=== PATIENT | female | born 1935 | race Caucasian/White ===

== ENCOUNTER → 2017-02-10 | Outpatient (CLI) | payer MEDICARE, OTHER | END | disposition home or self-care (01) | LOC: PCVCCLINIC 13:00 | PROVIDERS: ATTEND Internal Medicine Cardiovascular Disease | DX: E78.00 Pure hypercholesterolemia, unspecified (principal); I48.0 Paroxysmal atrial fibrillation; G45.9 Transient cerebral ischemic attack, unspecified; I34.0 Nonrheumatic mitral (valve) insufficiency; I07.1 Rheumatic tricuspid insufficiency | CPT/HCPCS: 80061; 93005; G0463 ==

== ENCOUNTER → 2017-09-29 | Outpatient (CLI) | payer MEDICARE, OTHER ==
--- NOTE | 2017-09-29 17:20 | PCVCIMAG ---
APPROVED REPORT Study performed: 09/29/2017 15:41:50 EXAM: Comprehensive 2D, Doppler, and color-flow Echocardiogram Patient Location: Echo lab Room #: 2Status: routine BSA: 1.79 HR: 55 bpmBP: 122/74 mmHg Rhythm: Bradycardia Other Information Study Quality: Fair Risk Factors: Cardiac Risk Factors: Hyperlipidemia Indications Pulmonary Hypertension Atrial Fibrillation 2D Dimensions LVEF(%): 53.12 (>50%) IVSd: 8.81 (7-11mm)LVOT Diam: 20.63 (18-24mm) LVDd: 45.21 mm PWd: 7.09 (7-11mm)Ascending Ao: 36.29 (22-36mm) LVDs: 32.90 (25-40mm) Left Atrium: 31.81 (27-40mm) Aortic Root: 33.75 mm LV Single Plane 4CH: 54.15 % LV Single Plane 2CH: 65.61 %Kwan's LVEF: 59.88 % Biplane EF: 60.9 % Volumes Left Atrial Volume (Systole) Single Plane 4CH: 43.63 mLSingle Plane 2CH: 36.25 mL Biplane LA Volume: 40.00 mLLA ESV Index: 22.00 mL/m2 Aortic Valve AoV Peak Joshua.: 1.06 m/s AO Peak Gr.: 4.51 mmHgLVOT Max P.55 mmHg LVOT Max V: 0.78 m/s PILAR Vmax: 2.47 cm2 AI Vmax: 3.78 m/s AI [place]: 1.43 m/s2 AI PHT: 767.86 ms Mitral Valve E/A Ratio: 0.6 MV Decel. Time: 245.09 ms MV E Max Joshua.: 0.38 m/s MV A Joshua.: 0.63 m/s IVRT: 138.41 ms TDI E/Lateral E': 5.43E/Medial E': 7.60 Medial E' Joshua.: 0.05 m/s Lateral E' Joshua.: 0.07 m/s Pulmonary Valve PV Peak Joshua.: 0.92 m/sPV Peak Gr.: 3.42 mmHg Pulmonary Vein P Vein S: 0.64 m/sP Vein A: 0.36 m/s P Vein D: 0.30 m/sP Vein A Dur.: 76.1 msec P Vein S/D Ratio: 2.13 Tricuspid Valve TR Peak Joshua.: 3.69 m/s TR Peak Gr.: 54.37 mmHg TV Vmax: 0.58 m/sPA Pressure: 60.00 mmHg Left Ventricle The left ventricle is normal size. There is normal LV segmental wall motion. There is normal left ventricular wall thickness. Left ventricular systolic function is normal. The left ventricular ejection fraction is within the normal range. LVEF is 60-65%. Grade I - abnormal relaxation pattern. Right Ventricle The right ventricle is normal size. The right ventricular systolic function is normal. Atria The left atrium size is normal. The right atrium size is normal. Aortic Valve Aortic valve is trileaflet. Aortic valve leaflets aremildly sclerotic but open well. Mild to moderate aortic regurgitation. There is no aortic valvular stenosis. Mitral Valve The mitral valve is normal in structure. There is no mitral valve regurgitation noted. No evidence of mitral valve stenosis. Tricuspid Valve The tricuspid valve is normal in structure. Mild to moderate tricuspid regurgitation with a PA pressure of 60mmHg. Pulmonic Valve The pulmonary valve is normal in structure. There is no pulmonic valvular regurgitation. Great Vessels The aortic root is normal in size. Ascending aorta is not well visualized. IVC is normal in size and collapses with >50% inspiration Pericardium There is no pericardial effusion. There is no pleural effusion. <Conclusion> The left ventricle is normal size. LVEF is 60-65%. Grade I - abnormal relaxation pattern. The right ventricle is normal size. The left atrium size is normal. Aortic valve is trileaflet. Aortic valve leaflets aremildly sclerotic but open well. Mild to moderate aortic regurgitation. There is no aortic valvular stenosis. There is no mitral valve regurgitation noted. Mild to moderate tricuspid regurgitation with a PA pressure of 60mmHg. There is no pericardial effusion.
== END | disposition home or self-care (01) ==
LOC: PCVCIMAG 15:38
PROVIDERS: ATTEND Internal Medicine Cardiovascular Disease
DX: I48.0 Paroxysmal atrial fibrillation (principal); K21.9 Gastro-esophageal reflux disease without esophagitis; M81.0 Age-related osteoporosis without current pathological fracture; J44.9 Chronic obstructive pulmonary disease, unspecified; G45.9 Transient cerebral ischemic attack, unspecified; I08.1 Rheumatic disorders of both mitral and tricuspid valves; I27.20 Pulmonary hypertension, unspecified; R00.1 Bradycardia, unspecified; Z87.891 Personal history of nicotine dependence; Z79.899 Other long term (current) drug therapy
CPT/HCPCS: 80061; 93005; 93306; G0463

== ENCOUNTER → 2018-03-30 | Outpatient (CLI) | payer MEDICARE, OTHER | END | disposition home or self-care (01) | LOC: PCVCCLINIC 13:58 | DX: I40.8 Other acute myocarditis (principal); I08.2 Rheumatic disorders of both aortic and tricuspid valves; I65.22 Occlusion and stenosis of left carotid artery; E78.00 Pure hypercholesterolemia, unspecified; J44.9 Chronic obstructive pulmonary disease, unspecified; K21.9 Gastro-esophageal reflux disease without esophagitis; Z87.891 Personal history of nicotine dependence; Z79.899 Other long term (current) drug therapy | CPT/HCPCS: 80061; 93005; G0463 ==

== ENCOUNTER → 2018-10-18 | Outpatient (CLI) | payer MEDICARE, OTHER | END | disposition home or self-care (01) | LOC: PCVCCLINIC 12:30 | PROVIDERS: ATTEND Internal Medicine Cardiovascular Disease | DX: I48.0 Paroxysmal atrial fibrillation (principal); I65.22 Occlusion and stenosis of left carotid artery; I36.1 Nonrheumatic tricuspid (valve) insufficiency; E78.00 Pure hypercholesterolemia, unspecified; J44.9 Chronic obstructive pulmonary disease, unspecified; K21.9 Gastro-esophageal reflux disease without esophagitis; Z86.73 Personal history of transient ischemic attack (TIA), and cerebral infarction without residual deficits; Z87.891 Personal history of nicotine dependence; Z79.899 Other long term (current) drug therapy | CPT/HCPCS: 80061; 93005; G0463 ==

== ENCOUNTER → 2019-07-05 | Outpatient (CLI) | payer MEDICARE, OTHER | END | disposition home or self-care (01) | LOC: PCVCCLINIC 13:59 | PROVIDERS: ATTEND Internal Medicine Cardiovascular Disease | DX: I48.0 Paroxysmal atrial fibrillation (principal); E78.00 Pure hypercholesterolemia, unspecified; I35.1 Nonrheumatic aortic (valve) insufficiency; I36.1 Nonrheumatic tricuspid (valve) insufficiency; D68.59 Other primary thrombophilia; I27.20 Pulmonary hypertension, unspecified; Z88.4 Allergy status to anesthetic agent; Z86.73 Personal history of transient ischemic attack (TIA), and cerebral infarction without residual deficits | CPT/HCPCS: 36415; 80061; 93005; G0463 ==